=== PATIENT | female | born 2000 | race African-American/Black ===

== ENCOUNTER 2022-05-07 09:29 | Emergency (ER) | payer OTHER ==
[~2022-05-07] VITALS: Ht 170.2 cm; Wt 50.0 kg
[2022-05-07 09:34] VITALS: BP 120/71
[2022-05-07] MEDS ORDERED: IBUPROFEN 600MG TABLET PO STA (10:21)
[2022-05-07] MEDS ORDERED: CYCL5TAB PO (10:41)
[2022-05-07] MEDS ORDERED: NAPR-681 PO (10:41)
== END 2022-05-07 10:42 | disposition left against medical advice (07) ==
LOC: ER 09:29
DX: R51.9 Headache, unspecified (principal); M54.9 Dorsalgia, unspecified; V49.9XXA Car occupant (driver) (passenger) injured in unspecified traffic accident, initial encounter; Y93.89 Activity, other specified; Y92.89 Other specified places as the place of occurrence of the external cause; Y99.8 Other external cause status
CPT/HCPCS: 99283